=== PATIENT | female | born 1990 ===

== ENCOUNTER 2024-02-06 12:34 | Outpatient (CLI) | payer OTHER | END 2024-02-06 13:24 | disposition home or self-care (01) | LOC: NST 12:34 | PROVIDERS: ATTEND Obstetrics & Gynecology Maternal & Fetal Medicine | DX: Z34.83 Encounter for supervision of other normal pregnancy, third trimester (principal) ==

== ENCOUNTER 2024-02-12 10:40 | Outpatient (CLI) | payer OTHER | END 2024-02-12 11:36 | disposition home or self-care (01) | LOC: NST 10:40 | PROVIDERS: ATTEND Obstetrics & Gynecology Maternal & Fetal Medicine | DX: Z34.83 Encounter for supervision of other normal pregnancy, third trimester (principal) ==